=== PATIENT | male | born 1985 | race African-American/Black ===

== ENCOUNTER 2016-11-18 16:47 | Emergency (ER) | payer OTHER ==
--- NOTE | ~2016-11-18 | CT2 ---
[facility] A Service of [facility] RADIOLOGY TEXT RESULTS PATIENT: MADDISON GALLARDO LOCATION: [facility] : [birth year] UNIT #: [id number] AGE: [address]: Meredith Sheehan MD SEX: M ORDER DR: [id number] [facility] [address] [place] [address] [place], [place] [address] [id number] MR#: [id number] Acc #: [id number] NAME: MADDISON GALLARDO. : 1985 SEX: M STUDY DATE/TIME: 11/18/2016 17:30 UNIT: DEX ROOM: STUDY DESCRIPTION: CT Abd and Pelv W Cont Attending Physician: Meredith Sheehan M.D. Ordering Physician: Meredith Sheehan M.D. Primary Care Physician: No Primary Care Physician MEDICAL IMAGING REPORT This report is preliminary unless electronic signature is present EXAM Abdomen and pelvis CT with contrast 11/18/2016 INDICATIONS 31-year-old male with vomiting, sweating, chest pains, history of Crohn disease and ulcers, onset of symptoms today. No history of malignancy. TECHNIQUE This CT exam was performed with one or more of the following radiation dose reduction techniques: automatic exposure control, adjustment of mA and/or kV according to patient size, and iterative reconstruction. Contrast enhanced CT of the abdomen and pelvis was performed. No comparisons. FINDINGS CT ABDOMEN: Included lung bases clear. No effusion. Aorta unremarkable. Solid abdominal organs are unremarkable. No adenopathy or drainable fluid collection. CT pelvis: Bladder and prostate unremarkable. No drainable fluid collection in the pelvis. Bowel demonstrates no obstruction or focal inflammatory change and the appendix is normal. Inguinal canals are unremarkable. There is no suspicious bone lesion. IMPRESSION Negative contrast-enhanced abdomen and pelvis CT. No drainable fluid collection, bowel obstruction or focal area of inflammatory change. Appendix normal. [facility] A Service [facility] RADIOLOGY TEXT RESULTS PATIENT: MADDISON GALLARDO LOCATION: [facility] : [birth year] UNIT #: [id number] AGE: [address]: Meredith Sheehan MD SEX: M ORDER DR: Dictated by... Gera Romano M.D. THIS IS AN ELECTRONICALLY VERIFIED REPORT Gera Romano M.D. at 11/19/2016 10:17 AM Opal TD: 11/19/2016 00:20 JOB #: [id number] MEDICAL IMAGING REPORT COPY
--- NOTE | ~2016-11-18 | CR72 ---
[facility] A Service of [facility] RADIOLOGY TEXT RESULTS PATIENT: MADDISON GALLARDO LOCATION: [facility] : [birth year] UNIT #: [id number] AGE: [address]: Meredith Sheehan MD SEX: M ORDER DR: [id number] [facility] [address] [place], [place] [address] [id number] MR#: [id number] Acc #: [id number] NAME: MADDISON GALLARDO. : 1985 SEX: M STUDY DATE/TIME: 11/18/2016 17:47 UNIT: [facility] ROOM: STUDY DESCRIPTION: CR Chest Single View Portable Attending Physician: Meredith Sheehan M.D. Ordering Physician: Meredith Sheehan M.D. Primary Care Physician: No Primary Care Physician MEDICAL IMAGING REPORT This report is preliminary unless electronic signature is present EXAM Portable chest 2 views, 11/18/2016 HISTORY Chest pain, nausea, vomiting, abdomen pain beginning today. FINDINGS A single AP portable view of the chest shows both lungs to be clear. The heart is normal in size. The mediastinal contour is normal. No significant bone abnormalities are seen. IMPRESSION Normal portable chest. Dictated by... Rafael Tong M.D. THIS IS AN ELECTRONICALLY VERIFIED REPORT Rafael Tong M.D. at 11/19/2016 4:19 PM LOR/taye TD: 11/19/2016 00:30 JOB #: [id number] MEDICAL IMAGING REPORT COPY
[2016-11-18 14:42] LABS: BASOPHIL# 0.1 X10e3 (0-0.3); BASOPHIL% 0.4 % (0-2.5); EOSINOPHIL% 0.1 % (0.0-7.0); HEMATOCRIT 47.1 % (38.0-50.0); HEMOGLOBIN 15.3 gm/dL (13.0-16.0); LYMPHOCYTE# 1.7 X10e3 (1.0-3.5); LYMPHOCYTE% 7.5 % (17.0-45.0); MEAN CELL VOLUME 93.5 FL (83-96); MEAN CORPUSCULAR HEMOGLOBIN 30.4 PG (28-34); MEAN CORPUSCULAR HGB CONC 32.5 g/dL (30-36); MEAN PLATELET VOLUME 7.3 FL (6.5-11.5); MONOCYTE# 1.5 X10e3 (0-1.0); MONOCYTE% 6.2 % (3.0-12.0); NEUTROPHIL# 20.1 X10e3 (1.5-7.1); NEUTROPHIL% 85.8 % (40-75); PLATELET COUNT 263 X10e3 (140-420); RED BLOOD COUNT 5.03 X10e (3.90-5.60); RED CELL DISTRIBUTION WIDTH 13.6 % (11.0-15.5); WHITE BLOOD COUNT 23.4 X10e3 (4.0-10.5)
[2016-11-18 14:43] LABS: DIFF IND YES
[2016-11-18 14:48] LABS: ALBUMIN SERUM 5.1 g/dL (3.5-5.0); ALKALINE PHOSPHATASE 75 U/L (32-92); ALT (SGPT) 44 U/L (10-40); AST (SGOT) 51 U/L (10-42); BILIRUBIN, DIRECT 0.1 mg/dL (0.0-0.2); BILIRUBIN,INDIRECT 0.6 mg/dL (0.0-0.9); BILIRUBIN,TOTAL 0.7 mg/dL (0.2-2.0); BLOOD UREA NITROGEN 19 mg/dL (9-23); BUN/CREATININE RATIO 14.61; CALCIUM SERUM 9.9 mg/dL (8.4-10.2); CARBON DIOXIDE 22 mmol/L (22-31); CHLORIDE 103 mmol/L (100-111); CREATININE SERUM 1.3 mg/dL (0.6-1.4); GLOM FILT RATE Estimated ABOVE60 mL/min (>60); GLUCOSE FASTING 105 mg/dL (70-110); LIPASE 16 U/L (22-51); POTASSIUM 4.1 mmol/L (3.5-5.1); PROTEIN TOTAL SERUM 8.5 g/dL (6.0-8.3); SODIUM 144 mmol/L (135-145)
[2016-11-18 15:44] LABS: INFLUENZA A NEG (NEG); INFLUENZA B NEG (NEG)
[2016-11-18 16:01] LABS: ANISOCYTOSIS SL; PLATELET ESTIMATE NORMAL (NORMAL)
[2016-11-18 16:25] LABS: URINE SOURCE CLEAN CATCH
[2016-11-18 16:41] LABS: URINE APPEARANCE CLEAR; URINE BILIRUBIN NEG (NEG); URINE BLOOD TRACE (NEG); URINE COLOR YELLOW; URINE GLUCOSE NEG (NEG); URINE KETONE 2+ (NEG); URINE LEUKOCYTE ESTERASE NEG (NEG); URINE NITRATE NEG (NEG); URINE PROTEIN TRACE (NEG); URINE SPECIFIC GRAVITY 1.025 (1.003-1.035)
[2016-11-18 16:45] LABS: U HYALINE CASTS AUWI 0-2 /[LPF]; URBCS1 AUWI 0-2 /[HPF] (0-2); URINE BACTERIA AUWI NEG (NEGATIVE); URINE SQUAMOUS EPITHELIAL CELL NONE SEEN /[HPF]; UWBCS1 AUWI 0-2 (0-5)
[~2016-11-18 16:47] MED LIST: AMOXICILLIN500 M1 PO; BACTRIM DS TABL1 TA1 PO; INDOMETHACIN50 MG PO; LORTAB 5/500 TA1 TA1 PO; MOTRIN400 MG PO; NEURONTIN300 MG PO; NO MEDICATIONS; TRAMADOL HCL50 M2 PO
[2016-11-18 16:53] LABS: AMPHETAMINE NEG (NEG); BARBITURATES NEG (NEG); BENZODIAZEPINES NEG (NEG); COCAINE NEG (NEG); MARIJUANA POS (NEG); OPIATES POS (NEG); TRICYCLIC ANTIDEPRESSANTS NEG (NEG); U METHADONE NEG (NEG)
[2016-11-18 16:54] LABS: CULTURE INDICATED? NO
== END 2016-11-18 18:48 | disposition home or self-care (01) ==
LOC: CED 16:47
PROVIDERS: Emergency Medicine
DX: R11.2 Nausea with vomiting, unspecified (principal); D72.829 Elevated white blood cell count, unspecified; F17.210 Nicotine dependence, cigarettes, uncomplicated
CPT/HCPCS: 36415; 71010; 74177; 80048; 80076; 80307; 81003; 83690; 85025; 87804; 96361; 96374; 96375; 99284; J1170; J2405; Q9967

== ENCOUNTER 2017-03-09 15:37 | Emergency (ER) | payer OTHER | END 2017-03-09 16:32 | disposition home or self-care (01) | LOC: CED 15:37 | DX: M25.775 Osteophyte, left foot (principal); Z98.890 Other specified postprocedural states | CPT/HCPCS: 99283 ==